=== PATIENT | female | born 1930 | race Two or more races ===

== ENCOUNTER 2017-07-08 20:46 | Inpatient (IN) | payer MEDICARE, MEDICAID ==
--- NOTE | 2017-07-08 21:01 | ED Physician Chart ---
ED Chief Complaint/HPI - Patient Information Date Seen:: 07/08/17 Time Seen:: 20:50 Chief Complaint:: increased agitation and confusion History of Present Illness:: At her extended care facility patient has been exhibiting increased confusion and agitation Historian:: EMS Review:: Nurse's Note Reviewed, Transfer documents Reviewed ED Review of Systems - Review of Systems General/Constitutional: No fever, No chills Skin: No skin lesions Head: No headache Eyes: No loss of vision ENT: No earache Neck: No neck pain Cardio Vascular: No chest pain Pulmonary: No SOB GI: No nausea, No vomiting, No diarrhea G/U: No dysuria Musculoskeletal: No bone or joint pain Endocrine: No polyuria Psychiatric: Prior psych history Hematopoietic: No bruising Allergic/Immuno: No urticaria ED Past Medical History - Past Medical History Past Medical History: Other (status post urinary tract infection; dysphagia; dementia; hypertension; atherosclerotic heart disease; arthritis; Parkinson's disease; major depression; transient ischemic attack; hemiplegia and hemiparesis ) Family History: Other (not available) Social History: Lives Alone, Care Facility Surgical History: other (not available) Psychiatricy History: Depression Family Medical History - Family Member Mother History Unknown: Yes ED Physical Exam - Physical Examination General/Constitutional: Well-developed, well-nourished, Alert Head: Atraumatic Eyes: Lids, conjuctiva normal, PERRL Skin: Nl inspection ENMT: External ears, nose nl Neck: No nuchal rigidity Respiratory: Nl effort/Exclusion, Clear to Auscultation Cardio Vascular: RRR, No murmur, gallop, rubs GI: No tenderness/rebounding/guarding Extremities: Normal digits & nails Neuro/Psych: No focal deficits ED Labs/Radiology/EKG Results - Lab Results Results: Laboratory Results - last 24 hr 07/08/17 07/08/17 07/08/17 21:23 21:23 21:23 WBC 7.4 RBC 4.03 Hgb 12.4 Hct 37.0 L MCV 91.8 MCH 30.7 MCHC Differential 33.5 RDW 13.3 Plt Count 318 MPV 9.1 Neutrophils % 50.5 Lymphocytes % 37.9 Monocytes % 8.6 Eosinophils % 2.4 Basophils % 0.6 Sodium 135 L Potassium 3.9 Chloride 101 Carbon Dioxide 26.1 Anion Gap 11.8 BUN 26 H Creatinine 1.7 H Est GFR ( Amer) TNP Est GFR (Non-Af Amer) TNP BUN/Creatinine Ratio 15.3 Glucose 95 Calcium 9.7 Total Bilirubin 0.3 AST 15 ALT 10 Alkaline Phosphatase 65 Total Protein 7.7 Albumin 4.1 Globulin 3.6 Albumin/Globulin Ratio 1.1 Triglycerides 193 H Cholesterol 217 H LDL Cholesterol Direct 147 HDL Cholesterol 43 TSH 11.95 H ED Septic Shock - . Is Septic Shock (SBP<90, OR Lactate>4 mmol\L) present?: No ED Reassessment (Disposition) - Reassessment Reassessment Condition:: Unchanged - Diagnosis Diagnosis:: Dementia with agitation - Patient Disposition Admitted to:: Med/Surg Spoke to:: Harjit Gillette Admitting Medical Physician:: Harjit Gillette Condition at Disposition:: Stable, Unchanged
[2017-07-08 21:33] LABS: EOSINOPHILE ABSOLUTE 0.2 Th/cmm (0.1-0.4); HEMOGLOBIN 12.4 gm/dL (12-16); LYMPHOCYTE ABSOLUTE 2.8 Th/cmm (1.5-3.0); RED CELL DISTRIBUTION WIDTH 13.3 % (11.5-20.0)
[2017-07-08 21:41] LABS: % BASOPHILS 0.6 % (0.0-2.0); % EOSINOPHILS 2.4 % (0.0-5.0); % LYMPHOCYTES 37.9 % (20.0-50.0); % MONOCYTES 8.6 % (2.0-10.0); % NEUTROPHILS 50.5 % (40.0-80.0); MEAN CELL VOLUME 91.8 fl (81-100); MEAN CORPUSCULAR HEMOGLOBIN 30.7 pg (27.0-31.0); MEAN CORPUSCULAR HGB CONC 33.5 pg (28.0-36.0); MEAN PLATELET VOLUME 9.1 fl; MONOCYTE ABSOLUTE 0.6 Th/cmm (0.3-1.0); NEUTROPHILE ABSOLUTE 3.8 Th/cmm (1.8-8.0); PLATELET COUNT 318 Th/cmm (150-400); RED BLOOD COUNT 4.03 Mil/cmm (3.80-5.20); WHITE BLOOD COUNT 7.4 Th/cmm (4.8-10.8)
[2017-07-08 21:48] LABS: ALB/GLOB RATIO 1.1 (1.0-1.8); ALBUMIN 4.1 gm/dL (3.7-5.3); ALKALINE PHOSPHATASE 65 U/L (34-104); ANION GAP 11.8 (7.0-16.0); BILIRUBIN,TOTAL 0.3 mg/dL (0.3-1.0); BUN - UREA NITROGEN 26 mg/dL (7-25); CALCIUM SERUM 9.7 mg/dL (8.6-10.3); CARBON DIOXIDE 26.1 mEq/L (21.0-31.0); CHLORIDE 101 mEq/L (98-107); CHOLESTEROL 217 mg/dL (<200); CREATININE - SERUM 1.7 mg/dL (0.6-1.2); GLUCOSE 95 mg/dL (70-105); HDL -HIGH DENSITY LIPOPROTEIN 43 mg/dL (23-92); POTASSIUM SERUM 3.9 mEq/L (3.5-5.1); SGOT 15 U/L (13-39); SGPT/ALT 10 U/L (7-52); SODIUM SERUM 135 mEq/L (136-145); TOTAL PROTEIN,SERUM 7.7 gm/dL (6.0-8.3); TRIGLYCERIDES 193 mg/dL (<150)
[2017-07-09 03:02] VITALS: BP 123/72
[2017-07-09 06:22] LABS: % BASOPHILS 3.2 % (0.0-2.0); % EOSINOPHILS 3.2 % (0.0-5.0); % LYMPHOCYTES 31.3 % (20.0-50.0); % MONOCYTES 8.5 % (2.0-10.0); % NEUTROPHILS 53.8 % (40.0-80.0); BASOPHILE ABSOLUTE 0.3 Th/cumm (0-0.2); EOSINOPHILE ABSOLUTE 0.3 Th/cmm (0.1-0.4); HEMATOCRIT 37.4 % (41.0-60); HEMOGLOBIN 12.4 gm/dL (12-16); LYMPHOCYTE ABSOLUTE 2.7 Th/cmm (1.5-3.0); MEAN CELL VOLUME 90.8 fl (81-100); MEAN CORPUSCULAR HEMOGLOBIN 30.1 pg (27.0-31.0); MEAN CORPUSCULAR HGB CONC 33.2 pg (28.0-36.0); MEAN PLATELET VOLUME 9.5 fl; MONOCYTE ABSOLUTE 0.7 Th/cmm (0.3-1.0); NEUTROPHILE ABSOLUTE 4.6 Th/cmm (1.8-8.0); PLATELET COUNT 323 Th/cmm (150-400); RED BLOOD COUNT 4.11 Mil/cmm (3.80-5.20); RED CELL DISTRIBUTION WIDTH 13.4 % (11.5-20.0); WHITE BLOOD COUNT 8.6 Th/cmm (4.8-10.8)
[2017-07-09 06:37] LABS: ALB/GLOB RATIO 1.1 (1.0-1.8); ALBUMIN 4.1 gm/dL (3.7-5.3); ALKALINE PHOSPHATASE 64 U/L (34-104); ANION GAP 11.9 (7.0-16.0); BILIRUBIN,TOTAL 0.5 mg/dL (0.3-1.0); BUN - UREA NITROGEN 25 mg/dL (7-25); CALCIUM SERUM 9.7 mg/dL (8.6-10.3); CARBON DIOXIDE 26.9 mEq/L (21.0-31.0); CHLORIDE 102 mEq/L (98-107); CREATININE - SERUM 1.7 mg/dL (0.6-1.2); GLUCOSE 93 mg/dL (70-105); POTASSIUM SERUM 3.8 mEq/L (3.5-5.1); SGOT 16 U/L (13-39); SGPT/ALT 10 U/L (7-52); SODIUM SERUM 137 mEq/L (136-145); TOTAL PROTEIN,SERUM 7.7 gm/dL (6.0-8.3)
[2017-07-09 18:28] LABS: A1C % 5.7 % (4.0-6.0)
== END 2017-07-09 11:57 | DRG 57 ==
LOC: ER 20:46 → MSI 07-09 00:50
PROVIDERS: ADMIT Family Medicine; ATTEND Family Medicine
DX: G20 Parkinson's disease (principal); F02.81 Dementia in other diseases classified elsewhere, unspecified severity, with behavioral disturbance; R13.10 Dysphagia, unspecified; I10 Essential (primary) hypertension; F29 Unspecified psychosis not due to a substance or known physiological condition; I25.10 Atherosclerotic heart disease of native coronary artery without angina pectoris; M19.90 Unspecified osteoarthritis, unspecified site; F32.9 Major depressive disorder, single episode, unspecified; Z86.73 Personal history of transient ischemic attack (TIA), and cerebral infarction without residual deficits
CPT/HCPCS: 36415-UA; 80053-TC; 80061-TC; 83036-90; 84443-TC; 84484-TC; 85025-TC; 86592-TC; 93005

== ENCOUNTER 2017-07-09 12:00 | Inpatient (IN) | payer MEDICARE, MEDICAID ==
[2017-07-09 12:32] VITALS: BP 120/74
[2017-07-09] MEDS ORDERED: Magnesium Hydroxide (MOM) 30 mL UDC PO PRN ×2 (12:33→13:35)
[2017-07-09] MEDS ORDERED: Maalox 30 mL Cup PO PRN (12:33)
[2017-07-09] MEDS ORDERED: Albuterol Nebulizer 2.5mg/3mL HHN PRN (13:35)
[2017-07-09] MEDS ORDERED: Albuterol/Ipratropium Neb 3 ML AERS HHN PRN (13:35)
[2017-07-09] MEDS ORDERED: Fleet Enema 135 mL RC PRN (13:35)
[2017-07-09 15:39] LABS: % BASOPHILS 1.1 % (0.0-2.0); % EOSINOPHILS 2.4 % (0.0-5.0); % LYMPHOCYTES 39.1 % (20.0-50.0); % MONOCYTES 7.9 % (2.0-10.0); % NEUTROPHILS 49.5 % (40.0-80.0); BASOPHILE ABSOLUTE 0.1 Th/cumm (0-0.2); EOSINOPHILE ABSOLUTE 0.2 Th/cmm (0.1-0.4); HEMATOCRIT 39.5 % (41.0-60); HEMOGLOBIN 12.7 gm/dL (12-16); LYMPHOCYTE ABSOLUTE 2.6 Th/cmm (1.5-3.0); MEAN CELL VOLUME 92.4 fl (81-100); MEAN CORPUSCULAR HEMOGLOBIN 29.8 pg (27.0-31.0); MEAN CORPUSCULAR HGB CONC 32.2 pg (28.0-36.0); MONOCYTE ABSOLUTE 0.5 Th/cmm (0.3-1.0); NEUTROPHILE ABSOLUTE 3.2 Th/cmm (1.8-8.0); PLATELET COUNT 312 Th/cmm (150-400); RED BLOOD COUNT 4.27 Mil/cmm (3.80-5.20); RED CELL DISTRIBUTION WIDTH 13.1 % (11.5-20.0)
[2017-07-09 15:54] LABS: WHITE BLOOD COUNT 6.6 Th/cmm (4.8-10.8)
[2017-07-09 16:22] LABS: ALB/GLOB RATIO 1.3 (1.0-1.8); ALBUMIN 4.3 gm/dL (3.7-5.3); ALKALINE PHOSPHATASE 86 U/L (34-104); ANION GAP 15.9 (7.0-16.0); BILIRUBIN,TOTAL 0.6 mg/dL (0.3-1.0); BUN - UREA NITROGEN 24 mg/dL (7-25); CALCIUM SERUM 9.4 mg/dL (8.6-10.3); CARBON DIOXIDE 22.9 mEq/L (21.0-31.0); CHLORIDE 103 mEq/L (98-107); CREATININE - SERUM 1.4 mg/dL (0.6-1.2); GLUCOSE 101 mg/dL (70-105); POTASSIUM SERUM 3.8 mEq/L (3.5-5.1); SGOT 16 U/L (13-39); SGPT/ALT 9 U/L (7-52); SODIUM SERUM 138 mEq/L (136-145); TOTAL PROTEIN,SERUM 7.7 gm/dL (6.0-8.3)
--- NOTE | 2017-07-09 18:22 | History & Physical ---
ADMIT DATE: 07/09/2017 CHIEF COMPLAINT: Severe confusion, aggressiveness. HISTORY OF PRESENT ILLNESS: The patient is an 86-year-old female with long history of Parkinson disease, hypertension, degenerative joint disease, coronary artery disease, dementia, resident at [facility], transferred to the Emergency Room at [facility] for evaluation and treatment. The patient has been very confused and aggressive over the last 24 hours. No fever, no chills, no nausea, no vomiting. PAST MEDICAL HISTORY: Parkinson disease, hypertension, coronary artery disease, degenerative joint disease, dementia. PAST SURGICAL HISTORY: No recent surgery. ALLERGIES: None. MEDICATIONS: Follow admission reconciliation. SOCIAL HISTORY: No smoking, no alcohol, no drugs. FAMILY HISTORY: Noncontributory. REVIEW OF SYSTEMS: RENAL SYSTEM: No history of chronic renal disorder. CARDIOVASCULAR SYSTEM: She has history of coronary artery disease and hypertension. ENDOCRINE SYSTEM: No diabetes or thyroid problem. GASTROINTESTINAL SYSTEM: No upper or lower GI bleeding. NEUROLOGICAL: She has history of dementia. MUSCULOSKELETAL SYSTEM: She has degenerative joint disease. HEMATOLOGIC: No bleeding tendencies. RESPIRATORY: No asthma. GENITOURINARY: No hematuria. PHYSICAL EXAMINATION: GENERAL: She is awake, not coherent. VITAL SIGNS: Temperature 98, heart rate 88, blood pressure 120/74. HEENT: Normocephalic. Pupils reactive to light and accommodation. Sclerae clear. NECK: Supple. Negative for lymphadenopathy, JVD or bruit. CHEST: Bilateral normal. No rhonchi or wheezing. HEART: S1, S2 normal. No murmur or gallop. ABDOMEN: Soft, bowel sounds positive. EXTREMITIES: No edema. NEUROLOGIC: She is awake, not coherent. No focal motor deficits. She has a gait unstable. ASSESSMENT: 1. Parkinson disease. 2. Hypertension. 3. Coronary artery disease. 4. Degenerative joint disease. 5. Dementia. PLAN: The patient admitted to the hospital under Dr. Kim's service. The medical problem to be addressed during hospitalization is dementia. Medical problems to be addressed at discharge are hypertension, coronary artery disease, Parkinson disease. The patient is medically stable for activity. Thank you Dr. Kim for asking me to see your patient. JOB# [id number]
[2017-07-10] MEDS: Multivitamin Tab PO SCH (08:13)
[2017-07-10] MEDS ORDERED: Non-Formulary Item 1 EA (Valsartan [Valsartan] 160 MG) PO SCH (09:00)
[2017-07-10 11:40] LABS: CHOLESTEROL 235 mg/dL (<200); HDL -HIGH DENSITY LIPOPROTEIN 50 mg/dL (23-92); TRIGLYCERIDES 122 mg/dL (<150)
--- NOTE | 2017-07-10 18:00 | General Progress Note ---
Subjective - Review of Systems Service Date: 07/10/17 Subjective: sitting in chair comfortably confused no distress Objective - Results Result Diagrams: 07/09/17 15:31 07/09/17 15: Recent Labs: Laboratory Last Values WBC 6.6 Th/cmm (4.8-10.8) D 07/09/17 15: RBC 4.27 Mil/cmm (3.80-5.20) 07/09/17 15: Hgb 12.7 gm/dL (12-16) 07/09/17 15: Hct 39.5 % (41.0-60) L 07/09/17 15: MCV 92.4 fl (81-100) 07/09/17 15: MCH 29.8 pg (27.0-31.0) 07/09/17: MCHC Differential 32.2 pg (28.0-36.0) 07/09/17 15: RDW 13.1 % (11.5-20.0) 07/09/17 15: Plt Count 312 Th/cmm (150-400) 07/09/17 15: MPV 9.0 fl 07/09/17 15: Neutrophils % 49.5 % (40.0-80.0) 07/09/17 15: Lymphocytes % 39.1 % (20.0-50.0) 07/09/17 15: Monocytes % 7.9 % (2.0-10.0) 07/09/17 15: Eosinophils % 2.4 % (0.0-5.0) 07/09/17: Basophils % 1.1 % (0.0-2.0) 07/09/17 15: Sodium 138 mEq/L (136-145) 07/09/17 15: Potassium 3.8 mEq/L (3.5-5.1) 07/09/17 15: Chloride 103 mEq/L (98-107) 07/09/17 15: Carbon Dioxide 22.9 mEq/L (21.0-31.0) 07/09/17 15: Anion Gap 15.9 (7.0-16.0) 07/09/17 15: BUN 24 mg/dL (7-25) 07/09/17 15:31 Creatinine 1.4 mg/dL (0.6-1.2) H 07/09/17 15:31 Est GFR ( Amer) TNP 07/09/17 15:31 Est GFR (Non-Af Amer) TNP 07/09/17 15:31 BUN/Creatinine Ratio 17.1 07/09/17 15:31 Glucose 101 mg/dL (70-105) 07/09/17 15:31 Calcium 9.4 mg/dL (8.6-10.3) 07/09/17 15:31 Total Bilirubin 0.6 mg/dL (0.3-1.0) 07/09/17 15:31 AST 16 U/L (13-39) 07/09/17 15:31 ALT 9 U/L (7-52) 07/09/17 15:31 Alkaline Phosphatase 86 U/L (34-104) 07/09/17 15:31 Total Protein 7.7 gm/dL (6.0-8.3) 07/09/17 15:31 Albumin 4.3 gm/dL (3.7-5.3) 07/09/17 15:31 Globulin 3.4 gm/dL 07/09/17 15:31 Albumin/Globulin Ratio 1.3 (1.0-1.8) 07/09/17 15:31 Triglycerides 122 mg/dL (<150) 07/10/17 10:49 Cholesterol 235 mg/dL (<200) H 07/10/17 10:49 LDL Cholesterol Direct 167 mg/dL (75-193) 07/10/17 10:49 HDL Cholesterol 50 mg/dL (23-92) 07/10/17 10:49 TSH 15.39 uIU/ml (0.34-5.60) H 07/09/17 15:31 - Physical Exam Vitals and I&O: Vital Signs Temp 97.7 F 07/10/17 16:07 Pulse 93 07/10/17 16:07 Resp 20 07/10/17 16:07 BP 122/74 07/10/17 16:07 Pulse Ox 97 07/10/17 16:07 Intake & Output 07/09/17 07/10/17 07/10/17 18:59 06:59 18:59 Intake Total 800 Balance 800 Weight (lbs) 73.482 kg Intake: Oral 800 Active Medications: Current Medications Acetaminophen (Tylenol) 650 mg PO Q4HR PRN PRN Reason: Mild Pain / Temp above 100 Stop: 09/07/17 12:32 Al Hydrox/Mg Hydrox/Simethicone (Maalox) 30 ml PO Q4HR PRN PRN Reason: GI DISTRESS Stop: 09/07/17 12:32 Albuterol/Ipratropium (Duoneb Neb) 3 ml HHN Q6HR PRN PRN Reason: Wheezing Stop: 09/07/17 13:34 Amlodipine Besylate (Norvasc) 5 mg PO DAILY [facility]ERI Stop: 09/08/17 08:59 Last Admin: 07/10/17 08:13 Dose: 5 mg Bisacodyl (Dulcolax 10 Mg Supp) 10 mg RC DAILY PRN PRN Reason: Constipation Stop: 09/07/17 13:34 Carbidopa/Levodopa (Sinemet 25mg-100 Mg) 1 tab PO TID GERI Stop: 09/07/17 13:59 Last Admin: 07/10/17 13:53 Dose: 1 tab Clopidogrel Bisulfate (Plavix) 75 mg PO DAILY [facility] Stop: 09/08/17 08:59 Last Admin: 07/10/17 08:13 Dose: 75 mg Docusate Sodium (Colace) 100 mg PO BID [facility] Stop: 09/07/17 16:59 Last Admin: 07/10/17 17:35 Dose: 100 mg Donepezil HCl (Aricept) 10 mg PO HS [facility] Stop: 09/07/17 20:59 Last Admin: 07/09/17 21:20 Dose: 10 mg Lorazepam (Ativan) 0.5 mg PO Q4HR PRN; Protocol PRN Reason: Agitation Stop: 08/08/17 12:32 Last Admin: 07/09/17 15:09 Dose: 0.5 mg Magnesium Hydroxide (Milk Of Magnesia) 30 ml PO DAILY PRN PRN Reason: Constipation Stop: 09/07/17 13:34 Memantine (Namenda) 10 mg PO BID [facility] Stop: 09/07/17 16:59 Last Admin: 07/10/17 17:35 Dose: 10 mg Multivitamins/Vitamin C (Theragran) 1 tab PO DAILY [facility]I Stop: 09/08/17 08:59 Last Admin: 07/10/17 08:13 Dose: 1 tab Quetiapine Fumarate (Seroquel) 12.5 mg PO HS GERI PRN Reason: Protocol Stop: 09/08/17 20:59 Sodium Phosphate (Fleet Enema) 135 ml RC Q48H PRN PRN Reason: Constipation Stop: 09/07/17 13:34 Tramadol HCl (Ultram) 50 mg PO Q6H PRN PRN Reason: Pain (Moderate) Stop: 09/07/17 13:34 Valsartan (Diovan) 160 mg PO DAILY GERI Stop: 09/08/17 08:59 Last Admin: 07/10/17 08:14 Dose: 160 mg Zolpidem Tartrate (Ambien) 5 mg PO HS PRN PRN Reason: Insomnia Stop: 09/07/17 12:32 Last Admin: 07/09/17 21:20 Dose: 5 mg General: No acute distress HEENT: Atraumatic, PERRLA Neck: JVD Cardiovascular: Regular rate, Normal S1, Normal S2 Lungs: Clear to auscultation Abdomen: Bowel sounds, Soft Assessment/Plan - Assessment Assessment: parkinson's disease HTN CAD dementia - Plan Plan: cont current treatment
[2017-07-11] MEDS: Multivitamin Tab PO SCH ×2 (10:11→10:22)
--- NOTE | 2017-07-11 13:51 | General Progress Note ---
Subjective - Review of Systems Service Date: 07/11/17 Subjective: resting comfortably no distress Objective - Results Result Diagrams: 07/09/17 15:31 07/09/17 15:31 Recent Labs: Laboratory Last Values WBC 6.6 Th/cmm (4.8-10.8) D 07/09/17 15:31 RBC 4.27 Mil/cmm (3.80-5.20) 07/09/17 15:31 Hgb 12.7 gm/dL (12-16) 07/09/17 15:31 Hct 39.5 % (41.0-60) L 07/09/17 15: MCV 92.4 fl (81-100) 07/09/17 15:31 MCH 29.8 pg (27.0-31.0) 07/09/17 15: MCHC Differential 32.2 pg (28.0-36.0) 07/09/17 15: RDW 13.1 % (11.5-20.0) 07/09/17 15: Plt Count 312 Th/cmm (150-400) 07/09/17 15: MPV 9.0 fl 07/09/17 15: Neutrophils % 49.5 % (40.0-80.0) 07/09/17 15: Lymphocytes % 39.1 % (20.0-50.0) 07/09/17 15: Monocytes % 7.9 % (2.0-10.0) 07/09/17 15: Eosinophils % 2.4 % (0.0-5.0) 07/09/17 15: Basophils % 1.1 % (0.0-2.0) 07/09/17 15:31 Sodium 138 mEq/L (136-145) 07/09/17 15:31 Potassium 3.8 mEq/L (3.5-5.1) 07/09/17 15: Chloride 103 mEq/L (98-107) 07/09/17 15: Carbon Dioxide 22.9 mEq/L (21.0-31.0) 07/09/17 15: Anion Gap 15.9 (7.0-16.0) 07/09/17 15:31 BUN 24 mg/dL (7-25) 07/09/17 15:31 Creatinine 1.4 mg/dL (0.6-1.2) H 07/09/17 15:31 Est GFR ( Amer) TNP 07/09/17 15:31 Est GFR (Non-Af Amer) TNP 07/09/17 15:31 BUN/Creatinine Ratio 17.1 07/09/17 15:31 Glucose 101 mg/dL (70-105) 07/09/17 15:31 Calcium 9.4 mg/dL (8.6-10.3) 07/09/17 15:31 Total Bilirubin 0.6 mg/dL (0.3-1.0) 07/09/17 15:31 AST 16 U/L (13-39) 07/09/17 15:31 ALT 9 U/L (7-52) 07/09/17 15:31 Alkaline Phosphatase 86 U/L (34-104) 07/09/17 15:31 Total Protein 7.7 gm/dL (6.0-8.3) 07/09/17 15:31 Albumin 4.3 gm/dL (3.7-5.3) 07/09/17 15:31 Globulin 3.4 gm/dL 07/09/17 15:31 Albumin/Globulin Ratio 1.3 (1.0-1.8) 07/09/17 15:31 Triglycerides 122 mg/dL (<150) 07/10/17 10:49 Cholesterol 235 mg/dL (<200) H 07/10/17 10:49 LDL Cholesterol Direct 167 mg/dL (75-193) 07/10/17 10:49 HDL Cholesterol 50 mg/dL (23-92) 07/10/17 10:49 TSH 15.39 uIU/ml (0.34-5.60) H 07/09/17 15:31 - Physical Exam Vitals and I&O: Vital Signs Temp 97.6 F 07/10/17 21:16 Pulse 74 07/11/17 10:23 Resp 20 07/11/17 07:23 BP 104/64 07/11/17 10:23 Pulse Ox 94 07/11/17 07:23 Intake & Output 07/10/17 07/11/17 07/11/17 18:59 06:59 18:59 Intake Total 850 240 Balance 850 240 Intake: Oral 850 240 Other: # Voids 4 1 # Bowel Movements 1 Active Medications: Current Medications Acetaminophen (Tylenol) 650 mg PO Q4HR PRN PRN Reason: Mild Pain / Temp above 100 Stop: 09/07/17 12:32 Al Hydrox/Mg Hydrox/Simethicone (Maalox) 30 ml PO Q4HR PRN PRN Reason: GI DISTRESS Stop: 09/07/17 12:32 Albuterol/Ipratropium (Duoneb Neb) 3 ml HHN Q6HR PRN PRN Reason: Wheezing Stop: 09/07/17 13:34 Amlodipine Besylate (Norvasc) 5 mg PO DAILY [facility] Stop: 09/08/17 08:59 Last Admin: 07/11/17 10:21 Dose: Not Given Bisacodyl (Dulcolax 10 Mg Supp) 10 mg RC DAILY PRN PRN Reason: Constipation Stop: 09/07/17 13:34 Carbidopa/Levodopa (Sinemet 25mg-100 Mg) 1 tab PO TID [facility] Stop: 09/07/17 13:59 Last Admin: 07/11/17 10:20 Dose: Not Given Clopidogrel Bisulfate (Plavix) 75 mg PO DAILY [facility] Stop: 09/08/17 08:59 Last Admin: 07/11/17 10:22 Dose: Not Given Docusate Sodium (Colace) 100 mg PO BID [facility] Stop: 09/07/17 16:59 Last Admin: 07/11/17 10:22 Dose: Not Given Donepezil HCl (Aricept) 10 mg PO HS [facility] Stop: 09/07/17 20:59 Last Admin: 07/10/17 22:00 Dose: 10 mg Lorazepam (Ativan) 0.5 mg PO Q4HR PRN; Protocol PRN Reason: Agitation Stop: 08/08/17 12:32 Last Admin: 07/09/17 15:09 Dose: 0.5 mg Magnesium Hydroxide (Milk Of Magnesia) 30 ml PO DAILY PRN PRN Reason: Constipation Stop: 09/07/17 13:34 Memantine (Namenda) 10 mg PO BID [facility] Stop: 09/07/17 16:59 Last Admin: 07/11/17 10:22 Dose: Not Given Multivitamins/Vitamin C (Theragran) 1 tab PO DAILY [facility] Stop: 09/08/17 08:59 Last Admin: 07/11/17 10:22 Dose: Not Given Quetiapine Fumarate (Seroquel) 12.5 mg PO HS [facility]I PRN Reason: Protocol Stop: 09/08/17 20:59 Last Admin: 07/10/17 22:00 Dose: 12.5 mg Sodium Phosphate (Fleet Enema) 135 ml RC Q48H PRN PRN Reason: Constipation Stop: 09/07/17 13:34 Tramadol HCl (Ultram) 50 mg PO Q6H PRN PRN Reason: Pain (Moderate) Stop: 09/07/17 13:34 Valsartan (Diovan) 160 mg PO DAILY [facility] Stop: 09/08/17 08:59 Last Admin: 07/11/17 10:23 Dose: Not Given Zolpidem Tartrate (Ambien) 5 mg PO HS PRN PRN Reason: Insomnia Stop: 09/07/17 12:32 Last Admin: 07/09/17 21:20 Dose: 5 mg General: No acute distress HEENT: Atraumatic, PERRLA Neck: JVD Cardiovascular: Regular rate, Normal S1, Normal S2 Lungs: Clear to auscultation Abdomen: Bowel sounds, Soft Assessment/Plan - Assessment Assessment: parkinson's disease HTN CAD dementia - Plan Plan: cont current treatment
--- NOTE | 2017-07-12 06:35 | Psychosocial Evaluation ---
DATE OF SERVICE: 07/12/2017 PSYCHIATRIC INITIAL EVALUATION AND MENTAL STATUS EXAM PATIENT AGE: 86. GENDER: Female. PHYSICIANS: Juanjose Kim MD and Doug Hester MD, MPH CHIEF COMPLAINT: Agitation and irritability. HISTORY OF PRESENT ILLNESS: The patient is an 86-year-old female who has been living in [facility]. The patient has been living in [facility] in [place]. The patient was in [facility], but the patient was extremely agitated and tried to get off the bed. She also has been agitated and unable to follow any of staff directions. She also has been confused, rambling words in Danish language that staff has difficulty understanding and the patient is confused. The patient also has history of dementia and forgetfulness. The patient is still agitated and confused and is in irritable mood. PAST PSYCHIATRIC HISTORY: The patient has history of dementia and psychosis. PAST MEDICAL HISTORY: The patient has hypertension, coronary artery disease, Parkinson's disease, and degenerative joint disease. SOCIAL HISTORY: The patient lives in [facility]. No known alcohol or street drug use. The patient is Danish speaking. ALLERGIES: No known allergies. MENTAL STATUS EXAMINATION: The patient appears her stated age. Anxious. Irritable mood. Disorganized thoughts. Tried to speak in Danish, but in a confused way. The patient also was yelling and screaming at times during interview. The patient did not answer questions regarding hallucinations or delusions, but she seems to be paranoid. The patient did not answer questions regarding suicide or homicide. The patient is alert and disoriented to time, place, person and situation. Impaired immediate and recent memory, but intact remote memory and she told me her date in Danish. I speak the language. Poor insight and judgment. ASSESSMENT: PRIMARY DIAGNOSIS: Unspecified psychosis. SECONDARY DIAGNOSIS: Dementia, severe, with psychotic features. TREATMENT PLAN: We will monitor the patient's behavior closely. We will start individual as well as milieu psychotherapy. We will monitor psychotropic medications. ESTIMATED LENGTH OF STAY: 5-7 days. THE PATIENT'S STRENGTHS AND WEAKNESSES: The patient's strength is not clear at this time. Weaknesses are her ineffective coping and poor impulse control. AFTER DISCHARGE PLAN: The patient will return to [facility] with outpatient treatment and follow up there with Dr. Kim. CRITERIA FOR DISCHARGE: The patient will not be psychotic and will stabilize psychotropic medications and will establish outpatient treatment plans. JOB# [id number]
[2017-07-12] MEDS: Multivitamin Tab PO SCH (09:46)
--- NOTE | 2017-07-12 23:54 | Internal Medicine Prog Note ---
Internal Medicine Subjective - Subjective Service Date: 07/12/17 Patient seen and examined:: with staff Patient is:: awake, non-verbal, in bed, confused Per staff patient has:: no adverse event Internal Medicine Objective - Results Result Diagrams: 07/09/17 15:31 07/09/17 15: Recent Labs: Laboratory Last Values WBC 6.6 Th/cmm (4.8-10.8) D 07/09/17 15: RBC 4.27 Mil/cmm (3.80-5.20) 07/09/17 15: Hgb 12.7 gm/dL (12-16) 07/09/17 15: Hct 39.5 % (41.0-60) L 07/09/17 15: MCV 92.4 fl (81-100) 07/09/17 15: MCH 29.8 pg (27.0-31.0) 07/09/17 15: MCHC Differential 32.2 pg (28.0-36.0) 07/09/17 15: RDW 13.1 % (11.5-20.0) 07/09/17 15: Plt Count 312 Th/cmm (150-400) 07/09/17 15: MPV 9.0 fl 07/09/17 15: Neutrophils % 49.5 % (40.0-80.0) 07/09/17 15: Lymphocytes % 39.1 % (20.0-50.0) 07/09/17 15: Monocytes % 7.9 % (2.0-10.0) 07/09/17 15: Eosinophils % 2.4 % (0.0-5.0) 07/09/17 15: Basophils % 1.1 % (0.0-2.0) 07/09/17 15: Sodium 138 mEq/L (136-145) 07/09/17 15: Potassium 3.8 mEq/L (3.5-5.1) 07/09/17 15: Chloride 103 mEq/L (98-107) 07/09/17 15: Carbon Dioxide 22.9 mEq/L (21.0-31.0) 07/09/17 15: Anion Gap 15.9 (7.0-16.0) 07/09/17 15:31 BUN 24 mg/dL (7-25) 07/09/17 15:31 Creatinine 1.4 mg/dL (0.6-1.2) H 07/09/17 15:31 Est GFR ( Amer) TNP 07/09/17 15:31 Est GFR (Non-Af Amer) TNP 07/09/17 15:31 BUN/Creatinine Ratio 17.1 07/09/17 15:31 Glucose 101 mg/dL (70-105) 07/09/17 15:31 Calcium 9.4 mg/dL (8.6-10.3) 07/09/17 15:31 Total Bilirubin 0.6 mg/dL (0.3-1.0) 07/09/17 15:31 AST 16 U/L (13-39) 07/09/17 15:31 ALT 9 U/L (7-52) 07/09/17 15:31 Alkaline Phosphatase 86 U/L (34-104) 07/09/17 15:31 Total Protein 7.7 gm/dL (6.0-8.3) 07/09/17 15:31 Albumin 4.3 gm/dL (3.7-5.3) 07/09/17 15:31 Globulin 3.4 gm/dL 07/09/17 15:31 Albumin/Globulin Ratio 1.3 (1.0-1.8) 07/09/17 15:31 Triglycerides 122 mg/dL (<150) 07/10/17 10:49 Cholesterol 235 mg/dL (<200) H 07/10/17 10:49 LDL Cholesterol Direct 167 mg/dL (75-193) 07/10/17 10:49 HDL Cholesterol 50 mg/dL (23-92) 07/10/17 10:49 TSH 15.39 uIU/ml (0.34-5.60) H 07/09/17 15:31 - Physical Exam Vitals and I&O: Vital Signs Temp 97.6 F 07/12/17 19:58 Pulse 89 07/12/17 19:58 Resp 20 07/12/17 19:58 BP 122/66 07/12/17 19:58 Pulse Ox 96 07/12/17 19:58 Intake & Output 02/05/18 02/05/18 02/06/18 06:59 18:59 06:59 Intake Total 120 120 120 Balance 120 120 120 Intake: Oral 120 120 120 Other: # Voids 1 2 1 # Bowel Movements 0 Active Medications: Current Medications Acetaminophen (Tylenol) 650 mg PO Q4HR PRN PRN Reason: Mild Pain / Temp above 100 Stop: 09/07/17 12:32 Al Hydrox/Mg Hydrox/Simethicone (Maalox) 30 ml PO Q4HR PRN PRN Reason: GI DISTRESS Stop: 09/07/17 12:32 Albuterol/Ipratropium (Duoneb Neb) 3 ml HHN Q6HR PRN PRN Reason: Wheezing Stop: 09/07/17 13:34 Amlodipine Besylate (Norvasc) 5 mg PO DAILY [facility] Stop: 09/08/17 08:59 Last Admin: 07/12/17 09:44 Dose: Not Given Bisacodyl (Dulcolax 10 Mg Supp) 10 mg RC DAILY PRN PRN Reason: Constipation Stop: 09/07/17 13:34 Carbidopa/Levodopa (Sinemet 25mg-100 Mg) 1 tab PO TID [facility] Stop: 09/07/17 13:59 Last Admin: 07/12/17 20:56 Dose: 1 tab Clopidogrel Bisulfate (Plavix) 75 mg PO DAILY [facility] Stop: 09/08/17 08:59 Last Admin: 07/12/17 09:45 Dose: 75 mg Docusate Sodium (Colace) 100 mg PO BID [facility] Stop: 09/07/17 16:59 Last Admin: 07/12/17 17:50 Dose: 100 mg Donepezil HCl (Aricept) 10 mg PO HS [facility] Stop: 09/07/17 20:59 Last Admin: 07/12/17 20:56 Dose: 10 mg Lorazepam (Ativan) 0.5 mg PO Q4HR PRN; Protocol PRN Reason: Agitation Stop: 08/08/17 12:32 Last Admin: 07/12/17 20:56 Dose: 0.5 mg Magnesium Hydroxide (Milk Of Magnesia) 30 ml PO DAILY PRN PRN Reason: Constipation Stop: 09/07/17 13:34 Memantine (Namenda) 10 mg PO BID [facility]I Stop: 09/07/17 16:59 Last Admin: 07/12/17 17:50 Dose: 10 mg Multivitamins/Vitamin C (Theragran) 1 tab PO DAILY [facility]I Stop: 09/08/17 08:59 Last Admin: 07/12/17 09:46 Dose: 1 tab Quetiapine Fumarate (Seroquel) 12.5 mg PO HS GERI PRN Reason: Protocol Stop: 09/08/17 20:59 Last Admin: 07/12/17 20:56 Dose: 12.5 mg Sodium Phosphate (Fleet Enema) 135 ml RC Q48H PRN PRN Reason: Constipation Stop: 09/07/17 13:34 Tramadol HCl (Ultram) 50 mg PO Q6H PRN PRN Reason: Pain (Moderate) Stop: 09/07/17 13:34 Valsartan (Diovan) 160 mg PO DAILY [facility] Stop: 09/08/17 08:59 Last Admin: 07/12/17 09:46 Dose: Not Given Zolpidem Tartrate (Ambien) 5 mg PO HS PRN PRN Reason: Insomnia Stop: 09/07/17 12:32 Last Admin: 07/11/17 21:46 Dose: 5 mg General: demented HEENT: NC/AT, PERRLA, EOMI, anicteric sclerae, throat clear Neck: Supple, No JVD, No thyromegaly, +2 carotid pulse wo bruit, No LAD Lungs: CTAB Cardiovascular: RRR, Normal S1, Normal S2, without murmur Abdomen: soft, non-tender, non-distended Extremities: clear Neurological: no change Internal Medicine Assmt/Plan - Assessment Assessment: 1.HTN. 2.DJD. 3.DEMENTIA - Plan Plan: CONTINUE ON CURRENT MEDICATION AND DIET.
--- NOTE | 2017-07-13 03:58 | Progress Notes ---
DATE: 07/12/2017 SUBJECTIVE: The patient is currently in the hospital on 07/12/2017. Noted to be agitated, tried to go out of the bed in the med-surg unit, not following rules, rambling speech, confused, disoriented, history of dementia. Staff noting she remains withdrawn, still with medication refusals, some agitation, and restlessness at night time also with poor sleep, requiring Ativan last night. The patient is coming from [facility]. Medications were reviewed including dosages and frequency, currently on low dose Seroquel and also Aricept. ASSESSMENT: The patient remains symptomatic, not safe for discharge. Still symptomatic, agitated, restless, more so at night time. PLAN: We will continue to monitor given ongoing symptoms. The patient is not safe for discharge, not safe for a lower level of care. JOB# [id number]
[2017-07-13] MEDS: Multivitamin Tab PO SCH (08:33)
--- NOTE | 2017-07-13 18:33 | Progress Notes ---
DATE: 07/13/2017 SUBJECTIVE: The patient is currently in the hospital, noted to be agitated, trying to get out of bed in the med-surg unit. At this time, quiet and in bed, not talking to me, refusing interview, refusing to speak with me, but awake and alert. The patient coming from [facility]. Staff noting patient remains at times unruly but generally calmer, more cooperative, still with some behaviors at nighttime. MEDICATIONS: Reviewed. ASSESSMENT: The patient remains symptomatic, still difficult to control behaviors, requiring redirection. PLAN: We will continue to monitor. The patient does seem to making an improvement. JOB# [id number]
--- NOTE | 2017-07-13 20:01 | Internal Medicine Prog Note ---
Internal Medicine Subjective - Subjective Service Date: 07/13/17 Patient seen and examined:: with staff (SHE IS FEELING BETTER.) Patient is:: awake, non-verbal, in bed, confused Per staff patient has:: no adverse event Internal Medicine Objective - Results Result Diagrams: 07/09/17 15:31 07/09/17 15: Recent Labs: Laboratory Last Values WBC 6.6 Th/cmm (4.8-10.8) D 07/09/17 15: RBC 4.27 Mil/cmm (3.80-5.20) 07/09/17 15: Hgb 12.7 gm/dL (12-16) 07/09/17 15: Hct 39.5 % (41.0-60) L 07/09/17 15: MCV 92.4 fl (81-100) 07/09/17 15: MCH 29.8 pg (27.0-31.0) 07/09/17 15: MCHC Differential 32.2 pg (28.0-36.0) 07/09/17 15: RDW 13.1 % (11.5-20.0) 07/09/17 15: Plt Count 312 Th/cmm (150-400) 07/09/17 15: MPV 9.0 fl 07/09/17 15: Neutrophils % 49.5 % (40.0-80.0) 07/09/17 15: Lymphocytes % 39.1 % (20.0-50.0) 07/09/17 15: Monocytes % 7.9 % (2.0-10.0) 07/09/17 15: Eosinophils % 2.4 % (0.0-5.0) 07/09/17 15: Basophils % 1.1 % (0.0-2.0) 07/09/17 15: Sodium 138 mEq/L (136-145) 07/09/17 15: Potassium 3.8 mEq/L (3.5-5.1) 07/09/17 15: Chloride 103 mEq/L (98-107) 07/09/17 15: Carbon Dioxide 22.9 mEq/L (21.0-31.0) 07/09/17 15: Anion Gap 15.9 (7.0-16.0) 07/09/17 15:31 BUN 24 mg/dL (7-25) 07/09/17 15:31 Creatinine 1.4 mg/dL (0.6-1.2) H 07/09/17 15:31 Est GFR ( Amer) TNP 07/09/17 15:31 Est GFR (Non-Af Amer) TNP 07/09/17 15:31 BUN/Creatinine Ratio 17.1 07/09/17 15:31 Glucose 101 mg/dL (70-105) 07/09/17 15:31 Calcium 9.4 mg/dL (8.6-10.3) 07/09/17 15:31 Total Bilirubin 0.6 mg/dL (0.3-1.0) 07/09/17 15:31 AST 16 U/L (13-39) 07/09/17 15:31 ALT 9 U/L (7-52) 07/09/17 15:31 Alkaline Phosphatase 86 U/L (34-104) 07/09/17 15:31 Total Protein 7.7 gm/dL (6.0-8.3) 07/09/17 15:31 Albumin 4.3 gm/dL (3.7-5.3) 07/09/17 15:31 Globulin 3.4 gm/dL 07/09/17 15:31 Albumin/Globulin Ratio 1.3 (1.0-1.8) 07/09/17 15:31 Triglycerides 122 mg/dL (<150) 07/10/17 10:49 Cholesterol 235 mg/dL (<200) H 07/10/17 10:49 LDL Cholesterol Direct 167 mg/dL (75-193) 07/10/17 10:49 HDL Cholesterol 50 mg/dL (23-92) 07/10/17 10:49 TSH 15.39 uIU/ml (0.34-5.60) H 07/09/17 15:31 - Physical Exam Vitals and I&O: Vital Signs Temp 96.9 F 07/13/17 16:29 Pulse 86 07/13/17 16:29 Resp 20 07/13/17 16:29 BP 127/73 07/13/17 16:29 Pulse Ox 96 07/13/17 16:29 Intake & Output 07/13/17 07/13/17 07/14/17 06:59 18:59 06:59 Intake Total 120 300 Balance 120 300 Intake: Oral 120 300 Other: # Voids 3 3 # Bowel Movements 1 Active Medications: Current Medications Acetaminophen (Tylenol) 650 mg PO Q4HR PRN PRN Reason: Mild Pain / Temp above 100 Stop: 09/07/17 12:32 Al Hydrox/Mg Hydrox/Simethicone (Maalox) 30 ml PO Q4HR PRN PRN Reason: GI DISTRESS Stop: 09/07/17 12:32 Albuterol/Ipratropium (Duoneb Neb) 3 ml HHN Q6HR PRN PRN Reason: Wheezing Stop: 09/07/17 13:34 Amlodipine Besylate (Norvasc) 5 mg PO DAILY GERI Stop: 09/08/17 08:59 Last Admin: 07/13/17 08:32 Dose: 5 mg Bisacodyl (Dulcolax 10 Mg Supp) 10 mg RC DAILY PRN PRN Reason: Constipation Stop: 09/07/17 13:34 Carbidopa/Levodopa (Sinemet 25mg-100 Mg) 1 tab PO TID GERI Stop: 09/07/17 13:59 Last Admin: 07/13/17 14:07 Dose: 1 tab Clopidogrel Bisulfate (Plavix) 75 mg PO DAILY GERI Stop: 09/08/17 08:59 Last Admin: 07/13/17 08:31 Dose: 75 mg Docusate Sodium (Colace) 100 mg PO BID GERI Stop: 09/07/17 16:59 Last Admin: 07/13/17 17:08 Dose: 100 mg Donepezil HCl (Aricept) 10 mg PO HS GERI Stop: 09/07/17 20:59 Last Admin: 07/12/17 20:56 Dose: 10 mg Lorazepam (Ativan) 0.5 mg PO Q4HR PRN; Protocol PRN Reason: Agitation Stop: 08/08/17 12:32 Last Admin: 07/12/17 20:56 Dose: 0.5 mg Magnesium Hydroxide (Milk Of Magnesia) 30 ml PO DAILY PRN PRN Reason: Constipation Stop: 09/07/17 13:34 Memantine (Namenda) 10 mg PO BID GERI Stop: 09/07/17 16:59 Last Admin: 07/13/17 17:08 Dose: 10 mg Multivitamins/Vitamin C (Theragran) 1 tab PO DAILY GERI Stop: 09/08/17 08:59 Last Admin: 07/13/17 08:33 Dose: 1 tab Quetiapine Fumarate (Seroquel) 12.5 mg PO HS GERI PRN Reason: Protocol Stop: 09/08/17 20:59 Last Admin: 07/12/17 20:56 Dose: 12.5 mg Sodium Phosphate (Fleet Enema) 135 ml RC Q48H PRN PRN Reason: Constipation Stop: 09/07/17 13:34 Tramadol HCl (Ultram) 50 mg PO Q6H PRN PRN Reason: Pain (Moderate) Stop: 09/07/17 13:34 Valsartan (Diovan) 160 mg PO DAILY GERI Stop: 09/08/17 08:59 Last Admin: 07/13/17 08:31 Dose: 160 mg Zolpidem Tartrate (Ambien) 5 mg PO HS PRN PRN Reason: Insomnia Stop: 09/07/17 12:32 Last Admin: 07/11/17 21:46 Dose: 5 mg General: demented HEENT: NC/AT, PERRLA, EOMI, anicteric sclerae, throat clear Neck: Supple, No JVD, No thyromegaly, +2 carotid pulse wo bruit, No LAD Lungs: CTAB Cardiovascular: RRR, Normal S1, Normal S2, without murmur Abdomen: soft, non-tender, non-distended Extremities: clear Neurological: no change Internal Medicine Assmt/Plan - Assessment Assessment: 1.HTN. 2.DJD. 3.DEMENTIA - Plan Plan: CONTINUE ON CURRENT MEDICATION AND DIET.
[2017-07-14] MEDS: Multivitamin Tab PO SCH (09:38)
--- NOTE | 2017-07-14 12:29 | Progress Notes ---
DATE: 07/14/2017 SUBJECTIVE: Chart reviewed and the patient interviewed. Also, discussed the patient's condition with the staff and reviewed records and labs. The patient continued to be confused. The patient also still seems to be disoriented. She also easily agitated, but cooperative. The patient is trying to interact more, but she is having difficulty with communication because of language barrier. Otherwise, the patient is compliant with taking her medications with no side effects of medications. ASSESSMENT: The patient is still psychotic and confused. TREATMENT PLAN: Continue to monitor her behavior and her medications closely. Also, continue adjusting psychotropic medications and will continue to follow up closely. [facility]# [id number]
--- NOTE | 2017-07-14 20:52 | Internal Medicine Prog Note ---
Internal Medicine Subjective - Subjective Service Date: 07/14/17 Patient seen and examined:: with staff Patient is:: awake, non-verbal, in bed, confused Per staff patient has:: no adverse event Internal Medicine Objective - Results Result Diagrams: 07/09/17 15:31 07/09/17 15: Recent Labs: Laboratory Last Values WBC 6.6 Th/cmm (4.8-10.8) D 07/09/17 15: RBC 4.27 Mil/cmm (3.80-5.20) 07/09/17 15: Hgb 12.7 gm/dL (12-16) 07/09/17 15: Hct 39.5 % (41.0-60) L 07/09/17 15: MCV 92.4 fl (81-100) 07/09/17 15: MCH 29.8 pg (27.0-31.0) 07/09/17 15: MCHC Differential 32.2 pg (28.0-36.0) 07/09/17 15: RDW 13.1 % (11.5-20.0) 07/09/17 15: Plt Count 312 Th/cmm (150-400) 07/09/17 15: MPV 9.0 fl 07/09/17 15: Neutrophils % 49.5 % (40.0-80.0) 07/09/17 15: Lymphocytes % 39.1 % (20.0-50.0) 07/09/17 15: Monocytes % 7.9 % (2.0-10.0) 07/09/17 15: Eosinophils % 2.4 % (0.0-5.0) 07/09/17 15: Basophils % 1.1 % (0.0-2.0) 07/09/17 15: Sodium 138 mEq/L (136-145) 07/09/17 15: Potassium 3.8 mEq/L (3.5-5.1) 07/09/17 15: Chloride 103 mEq/L (98-107) 07/09/17 15: Carbon Dioxide 22.9 mEq/L (21.0-31.0) 07/09/17 15: Anion Gap 15.9 (7.0-16.0) 07/09/17 15:31 BUN 24 mg/dL (7-25) 07/09/17 15:31 Creatinine 1.4 mg/dL (0.6-1.2) H 07/09/17 15:31 Est GFR ( Amer) TNP 07/09/17 15:31 Est GFR (Non-Af Amer) TNP 07/09/17 15:31 BUN/Creatinine Ratio 17.1 07/09/17 15:31 Glucose 101 mg/dL (70-105) 07/09/17 15:31 Calcium 9.4 mg/dL (8.6-10.3) 07/09/17 15:31 Total Bilirubin 0.6 mg/dL (0.3-1.0) 07/09/17 15:31 AST 16 U/L (13-39) 07/09/17 15:31 ALT 9 U/L (7-52) 07/09/17 15:31 Alkaline Phosphatase 86 U/L (34-104) 07/09/17 15:31 Total Protein 7.7 gm/dL (6.0-8.3) 07/09/17 15:31 Albumin 4.3 gm/dL (3.7-5.3) 07/09/17 15:31 Globulin 3.4 gm/dL 07/09/17 15:31 Albumin/Globulin Ratio 1.3 (1.0-1.8) 07/09/17 15:31 Triglycerides 122 mg/dL (<150) 07/10/17 10:49 Cholesterol 235 mg/dL (<200) H 07/10/17 10:49 LDL Cholesterol Direct 167 mg/dL (75-193) 07/10/17 10:49 HDL Cholesterol 50 mg/dL (23-92) 07/10/17 10:49 TSH 15.39 uIU/ml (0.34-5.60) H 07/09/17 15:31 - Physical Exam Vitals and I&O: Vital Signs Temp 98.0 F 07/14/17 14:52 Pulse 90 07/14/17 14:52 Resp 20 07/14/17 14:52 BP 120/69 07/14/17 14:52 Pulse Ox 98 07/14/17 14:52 Intake & Output 02/07/18 02/07/18 02/08/18 06:59 18:59 06:59 Intake Total 180 300 Balance 180 300 Intake: Oral 180 300 Other: # Voids 2 3 # Bowel Movements 0 0 Active Medications: Current Medications Acetaminophen (Tylenol) 650 mg PO Q4HR PRN PRN Reason: Mild Pain / Temp above 100 Stop: 09/07/17 12:32 Al Hydrox/Mg Hydrox/Simethicone (Maalox) 30 ml PO Q4HR PRN PRN Reason: GI DISTRESS Stop: 09/07/17 12:32 Albuterol/Ipratropium (Duoneb Neb) 3 ml HHN Q6HR PRN PRN Reason: Wheezing Stop: 09/07/17 13:34 Amlodipine Besylate (Norvasc) 5 mg PO DAILY GERI Stop: 09/08/17 08:59 Last Admin: 07/14/17 09:37 Dose: 5 mg Bisacodyl (Dulcolax 10 Mg Supp) 10 mg RC DAILY PRN PRN Reason: Constipation Stop: 09/07/17 13:34 Carbidopa/Levodopa (Sinemet 25mg-100 Mg) 1 tab PO TID GERI Stop: 09/07/17 13:59 Last Admin: 07/14/17 14:17 Dose: 1 tab Clopidogrel Bisulfate (Plavix) 75 mg PO DAILY GERI Stop: 09/08/17 08:59 Last Admin: 07/14/17 09:37 Dose: 75 mg Docusate Sodium (Colace) 100 mg PO BID GERI Stop: 09/07/17 16:59 Last Admin: 07/14/17 16:10 Dose: 100 mg Donepezil HCl (Aricept) 10 mg PO HS GERI Stop: 09/07/17 20:59 Last Admin: 07/13/17 21:18 Dose: 10 mg Lorazepam (Ativan) 0.5 mg PO Q4HR PRN; Protocol PRN Reason: Agitation Stop: 08/08/17 12:32 Last Admin: 07/13/17 21:19 Dose: 0.5 mg Magnesium Hydroxide (Milk Of Magnesia) 30 ml PO DAILY PRN PRN Reason: Constipation Stop: 09/07/17 13:34 Memantine (Namenda) 10 mg PO BID GERI Stop: 09/07/17 16:59 Last Admin: 07/14/17 16:10 Dose: 10 mg Multivitamins/Vitamin C (Theragran) 1 tab PO DAILY GERI Stop: 09/08/17 08:59 Last Admin: 07/14/17 09:38 Dose: 1 tab Quetiapine Fumarate (Seroquel) 12.5 mg PO HS GERI PRN Reason: Protocol Stop: 09/08/17 20:59 Last Admin: 07/13/17 21:19 Dose: 12.5 mg Sodium Phosphate (Fleet Enema) 135 ml RC Q48H PRN PRN Reason: Constipation Stop: 09/07/17 13:34 Tramadol HCl (Ultram) 50 mg PO Q6H PRN PRN Reason: Pain (Moderate) Stop: 09/07/17 13:34 Valsartan (Diovan) 160 mg PO DAILY GERI Stop: 09/08/17 08:59 Last Admin: 07/14/17 09:38 Dose: 160 mg Zolpidem Tartrate (Ambien) 5 mg PO HS PRN PRN Reason: Insomnia Stop: 09/07/17 12:32 Last Admin: 07/11/17 21:46 Dose: 5 mg General: demented HEENT: NC/AT, PERRLA, EOMI, anicteric sclerae, throat clear Neck: Supple, No JVD, No thyromegaly, +2 carotid pulse wo bruit, No LAD Lungs: CTAB Cardiovascular: RRR, Normal S1, Normal S2, without murmur Abdomen: soft, non-tender, non-distended Extremities: clear Neurological: no change Internal Medicine Assmt/Plan - Assessment Assessment: 1.HTN. 2.DJD. 3.DEMENTIA - Plan Plan: CONTINUE ON CURRENT MEDICATION AND DIET.
[2017-07-15] MEDS: Multivitamin Tab PO SCH (08:45)
--- NOTE | 2017-07-15 14:34 | Progress Notes ---
DATE: 07/14/2017 SUBJECTIVE: The patient remains confused, holding a baby, is still anxious, agitated, on a rhiannon chair, poor med compliance, needing a lot of prompting and redirection, still with unruly behaviors, impulsive behaviors, aggressive at times. MEDICATIONS: Reviewed. ASSESSMENT: The patient remains symptomatic, still unruly, difficult to control behaviors. PLAN: We will continue to monitor. We will continue to titrate and adjust medications. No oversedation noted. No EPS. We will monitor and follow up. JOB# [id number]
--- NOTE | 2017-07-15 17:59 | Internal Medicine Prog Note ---
Internal Medicine Subjective - Subjective Service Date: 07/15/17 Patient seen and examined:: with staff Patient is:: awake, non-verbal, in bed, confused Per staff patient has:: no adverse event Internal Medicine Objective - Results Result Diagrams: 07/09/17 15:31 07/09/17 15: Recent Labs: Laboratory Last Values WBC 6.6 Th/cmm (4.8-10.8) D 07/09/17 15: RBC 4.27 Mil/cmm (3.80-5.20) 07/09/17 15: Hgb 12.7 gm/dL (12-16) 07/09/17 15: Hct 39.5 % (41.0-60) L 07/09/17 15: MCV 92.4 fl (81-100) 07/09/17 15: MCH 29.8 pg (27.0-31.0) 07/09/17 15: MCHC Differential 32.2 pg (28.0-36.0) 07/09/17 15: RDW 13.1 % (11.5-20.0) 07/09/17 15: Plt Count 312 Th/cmm (150-400) 07/09/17 15: MPV 9.0 fl 07/09/17 15: Neutrophils % 49.5 % (40.0-80.0) 07/09/17 15: Lymphocytes % 39.1 % (20.0-50.0) 07/09/17 15: Monocytes % 7.9 % (2.0-10.0) 07/09/17 15: Eosinophils % 2.4 % (0.0-5.0) 07/09/17 15: Basophils % 1.1 % (0.0-2.0) 07/09/17 15: Sodium 138 mEq/L (136-145) 07/09/17 15: Potassium 3.8 mEq/L (3.5-5.1) 07/09/17 15: Chloride 103 mEq/L (98-107) 07/09/17 15: Carbon Dioxide 22.9 mEq/L (21.0-31.0) 07/09/17 15: Anion Gap 15.9 (7.0-16.0) 07/09/17 15:31 BUN 24 mg/dL (7-25) 07/09/17 15:31 Creatinine 1.4 mg/dL (0.6-1.2) H 07/09/17 15:31 Est GFR ( Amer) TNP 07/09/17 15:31 Est GFR (Non-Af Amer) TNP 07/09/17 15:31 BUN/Creatinine Ratio 17.1 07/09/17 15:31 Glucose 101 mg/dL (70-105) 07/09/17 15:31 Calcium 9.4 mg/dL (8.6-10.3) 07/09/17 15:31 Total Bilirubin 0.6 mg/dL (0.3-1.0) 07/09/17 15:31 AST 16 U/L (13-39) 07/09/17 15:31 ALT 9 U/L (7-52) 07/09/17 15:31 Alkaline Phosphatase 86 U/L (34-104) 07/09/17 15:31 Total Protein 7.7 gm/dL (6.0-8.3) 07/09/17 15:31 Albumin 4.3 gm/dL (3.7-5.3) 07/09/17 15:31 Globulin 3.4 gm/dL 07/09/17 15:31 Albumin/Globulin Ratio 1.3 (1.0-1.8) 07/09/17 15:31 Triglycerides 122 mg/dL (<150) 07/10/17 10:49 Cholesterol 235 mg/dL (<200) H 07/10/17 10:49 LDL Cholesterol Direct 167 mg/dL (75-193) 07/10/17 10:49 HDL Cholesterol 50 mg/dL (23-92) 07/10/17 10:49 TSH 15.39 uIU/ml (0.34-5.60) H 07/09/17 15:31 - Physical Exam Vitals and I&O: Vital Signs Temp 97.2 F 07/15/17 14:00 Pulse 79 07/15/17 14:00 Resp 20 07/15/17 14:00 BP 102/67 07/15/17 14:00 Pulse Ox 96 07/15/17 14:00 Intake & Output 02/07/18 02/08/18 02/08/18 18:59 06:59 18:59 Intake Total 300 120 Balance 300 120 Intake: Oral 300 120 Other: # Voids 3 3 # Bowel Movements 0 Active Medications: Current Medications Acetaminophen (Tylenol) 650 mg PO Q4HR PRN PRN Reason: Mild Pain / Temp above 100 Stop: 09/07/17 12:32 Al Hydrox/Mg Hydrox/Simethicone (Maalox) 30 ml PO Q4HR PRN PRN Reason: GI DISTRESS Stop: 09/07/17 12:32 Albuterol/Ipratropium (Duoneb Neb) 3 ml HHN Q6HR PRN PRN Reason: Wheezing Stop: 09/07/17 13:34 Amlodipine Besylate (Norvasc) 5 mg PO DAILY GERI Stop: 09/08/17 08:59 Last Admin: 07/15/17 08:44 Dose: 5 mg Bisacodyl (Dulcolax 10 Mg Supp) 10 mg RC DAILY PRN PRN Reason: Constipation Stop: 09/07/17 13:34 Carbidopa/Levodopa (Sinemet 25mg-100 Mg) 1 tab PO TID GERI Stop: 09/07/17 13:59 Last Admin: 07/15/17 14:44 Dose: Not Given Clopidogrel Bisulfate (Plavix) 75 mg PO DAILY GERI Stop: 09/08/17 08:59 Last Admin: 07/15/17 08:44 Dose: 75 mg Docusate Sodium (Colace) 100 mg PO BID GERI Stop: 09/07/17 16:59 Last Admin: 07/15/17 16:23 Dose: Not Given Donepezil HCl (Aricept) 10 mg PO HS [facility] Stop: 09/07/17 20:59 Last Admin: 07/14/17 21:28 Dose: 10 mg Lorazepam (Ativan) 0.5 mg PO Q4HR PRN; Protocol PRN Reason: Agitation Stop: 08/08/17 12:32 Last Admin: 07/13/17 21:19 Dose: 0.5 mg Magnesium Hydroxide (Milk Of Magnesia) 30 ml PO DAILY PRN PRN Reason: Constipation Stop: 09/07/17 13:34 Memantine (Namenda) 10 mg PO BID GERI Stop: 09/07/17 16:59 Last Admin: 07/15/17 16:23 Dose: Not Given Multivitamins/Vitamin C (Theragran) 1 tab PO DAILY GERI Stop: 09/08/17 08:59 Last Admin: 07/15/17 08:45 Dose: 1 tab Quetiapine Fumarate (Seroquel) 12.5 mg PO HS GERI PRN Reason: Protocol Stop: 09/08/17 20:59 Last Admin: 07/14/17 21:28 Dose: 12.5 mg Sodium Phosphate (Fleet Enema) 135 ml RC Q48H PRN PRN Reason: Constipation Stop: 09/07/17 13:34 Tramadol HCl (Ultram) 50 mg PO Q6H PRN PRN Reason: Pain (Moderate) Stop: 09/07/17 13:34 Valsartan (Diovan) 160 mg PO DAILY GERI Stop: 09/08/17 08:59 Last Admin: 07/15/17 08:45 Dose: 160 mg Zolpidem Tartrate (Ambien) 5 mg PO HS PRN PRN Reason: Insomnia Stop: 09/07/17 12:32 Last Admin: 07/11/17 21:46 Dose: 5 mg General: demented HEENT: NC/AT, PERRLA, EOMI, anicteric sclerae, throat clear Neck: Supple, No JVD, No thyromegaly, +2 carotid pulse wo bruit, No LAD Lungs: CTAB Cardiovascular: RRR, Normal S1, Normal S2, without murmur Abdomen: soft, non-tender, non-distended Extremities: clear Neurological: no change Internal Medicine Assmt/Plan - Assessment Assessment: 1.HTN. 2.DJD. 3.DEMENTIA - Plan Plan: CONTINUE ON CURRENT MEDICATION AND DIET. Nutritional Asmnt/Malnutr-PDOC - Dietary Evaluation Malnutrition Findings (Please click <Entered> for more info): Nutritional Asmnt/Malnutrition Start: 07/15/17 15: 08 Text: Status: Complete Freq: Document 07/15/17 15:08 SWATHI (Rec: 07/15/17 15:15 [email or web address]) Nutritional Asmnt/Malnutrition Patient General Information Nutritional Screening Moderate Risk Diagnosis agitation Pertinent Medical Hx/Surgical Hx parkinson disease, HTN, CAD, DJD, dementia Subjective Information Pt seen sleeping in rhiannon-chair in dining room. Spoke with nurse, pt needs assistance with feeding. Pt does not eat very much d/t sleepy most of the time. Per records, PO itnake 25%. Current Diet Order/ Nutrition Support [facility] soft ground Pertinent Medications colace, theragran, seroquel Pertinent Labs 2 Na 138, K 3.8, Cl 103, BUN 24, Cr 1.4, Glucose 101, Ca 9 .4, Alb 4.3 Nutritional Hx/Data Height 1.6 m Height (Calculated Centimeters) 160.0 Current Weight (lbs) 73.482 kg Weight (Calculated Kilograms) 73.5 Weight (Calculated Grams) 26787.0 Cobb Body Weight 115 % Cobb Body Weight 140 Body Mass Index (BMI) 28.7 Weight Status Overweight GI Symptoms GI Symptoms None Last BM 2/6 Difficult in: None Skin Integrity/Comment: intact Current %PO Poor (25-49%) Estimated Nutritional Goals Calories/Kcals/Kg 25-30 Kcals Calculated 1352-6213 Protein g/k-1.2 Protein Calculated 58-70 Fluid: ml 1450-1740ml (1ml/kcal) Nutritional Problem 1. Problem Problem inadequate food intake Etiology possible cognition, weakness Signs/Symptoms: PO intake 25%, meeting only 40 % of nutritional needs Malnutrition Alert Protein-Calorie Malnutrition N/A Is there a minimum of two criteria No selected? Query Text:Check all the applicable criteria. A minimum of two criteria are recommended for diagnosis of either severe or non-severe malnutrition. Intervention/Recommendation Comments 1. Continue with current diet as ordered. Assist with feeding for each meals. Recommend small frequent meals . 2. MD to consider appetite stimulat to help food intake. 3. Monitor PO intake, wt, labs and skin integrity 4. F/U as moderate risk in 3-5 days, 07/18-07/20 Expected Outcomes/Goals Expected Outcomes/Goals 1. PO intake to meet at least 75% of nutritional needs. 2. Wt stability, skin to remain intact, labs to approach WNL.
--- NOTE | 2017-07-16 03:47 | Progress Notes ---
DATE: 07/15/2017 SUBJECTIVE: The patient seen, chart reviewed, discussed with staff. The patient remains quite confused. Staff noting she seems to be doing well, more interactive, calmer, more cooperative, still disoriented, but no agitation, no escalation of behaviors. She has been taking her medications. ASSESSMENT: The patient remains confused, disoriented, but seemingly improved, especially since admission calmer. No agitation. No violent symptoms. PLAN: We will continue to monitor, the patient likely approaching her baseline. Her medications were reviewed including dosages and frequencies. JOB# [id number]
[2017-07-16] MEDS: Multivitamin Tab PO SCH (08:38)
--- NOTE | 2017-07-16 19:21 | Internal Medicine Prog Note ---
Internal Medicine Subjective - Subjective Service Date: 07/16/17 Patient seen and examined:: with staff (she is doing well) Patient is:: awake, non-verbal, in bed, confused Per staff patient has:: no adverse event Internal Medicine Objective - Results Result Diagrams: 07/09/17 15:31 07/09/17 15: Recent Labs: Laboratory Last Values WBC 6.6 Th/cmm (4.8-10.8) D 07/09/17 15: RBC 4.27 Mil/cmm (3.80-5.20) 07/09/17 15: Hgb 12.7 gm/dL (12-16) 07/09/17 15: Hct 39.5 % (41.0-60) L 07/09/17 15: MCV 92.4 fl (81-100) 07/09/17 15: MCH 29.8 pg (27.0-31.0) 07/09/17 15: MCHC Differential 32.2 pg (28.0-36.0) 07/09/17 15: RDW 13.1 % (11.5-20.0) 07/09/17 15: Plt Count 312 Th/cmm (150-400) 07/09/17 15: MPV 9.0 fl 07/09/17 15: Neutrophils % 49.5 % (40.0-80.0) 07/09/17 15: Lymphocytes % 39.1 % (20.0-50.0) 07/09/17 15: Monocytes % 7.9 % (2.0-10.0) 07/09/17 15: Eosinophils % 2.4 % (0.0-5.0) 07/09/17 15: Basophils % 1.1 % (0.0-2.0) 07/09/17 15: Sodium 138 mEq/L (136-145) 07/09/17 15: Potassium 3.8 mEq/L (3.5-5.1) 07/09/17 15: Chloride 103 mEq/L (98-107) 07/09/17 15: Carbon Dioxide 22.9 mEq/L (21.0-31.0) 07/09/17 15: Anion Gap 15.9 (7.0-16.0) 07/09/17 15:31 BUN 24 mg/dL (7-25) 07/09/17 15:31 Creatinine 1.4 mg/dL (0.6-1.2) H 07/09/17 15:31 Est GFR ( Amer) TNP 07/09/17 15:31 Est GFR (Non-Af Amer) TNP 07/09/17 15:31 BUN/Creatinine Ratio 17.1 07/09/17 15:31 Glucose 101 mg/dL (70-105) 07/09/17 15:31 Calcium 9.4 mg/dL (8.6-10.3) 07/09/17 15:31 Total Bilirubin 0.6 mg/dL (0.3-1.0) 07/09/17 15:31 AST 16 U/L (13-39) 07/09/17 15:31 ALT 9 U/L (7-52) 07/09/17 15:31 Alkaline Phosphatase 86 U/L (34-104) 07/09/17 15:31 Total Protein 7.7 gm/dL (6.0-8.3) 07/09/17 15:31 Albumin 4.3 gm/dL (3.7-5.3) 07/09/17 15:31 Globulin 3.4 gm/dL 07/09/17 15:31 Albumin/Globulin Ratio 1.3 (1.0-1.8) 07/09/17 15:31 Triglycerides 122 mg/dL (<150) 07/10/17 10:49 Cholesterol 235 mg/dL (<200) H 07/10/17 10:49 LDL Cholesterol Direct 167 mg/dL (75-193) 07/10/17 10:49 HDL Cholesterol 50 mg/dL (23-92) 07/10/17 10:49 TSH 15.39 uIU/ml (0.34-5.60) H 07/09/17 15:31 - Physical Exam Vitals and I&O: Vital Signs Temp 97.6 F 07/16/17 16:32 Pulse 71 07/16/17 16:32 Resp 19 07/16/17 16:32 BP 106/78 07/16/17 16:32 Pulse Ox 95 07/16/17 16:32 Intake & Output 07/16/17 07/16/17 07/17/17 06:59 18:59 06:59 Intake Total 720 Balance 720 Intake: Oral 720 Other: # Voids 3 # Bowel Movements 1 Active Medications: Current Medications Acetaminophen (Tylenol) 650 mg PO Q4HR PRN PRN Reason: Mild Pain / Temp above 100 Stop: 09/07/17 12:32 Al Hydrox/Mg Hydrox/Simethicone (Maalox) 30 ml PO Q4HR PRN PRN Reason: GI DISTRESS Stop: 09/07/17 12:32 Albuterol/Ipratropium (Duoneb Neb) 3 ml HHN Q6HR PRN PRN Reason: Wheezing Stop: 09/07/17 13:34 Amlodipine Besylate (Norvasc) 5 mg PO DAILY GERI Stop: 09/08/17 08:59 Last Admin: 07/16/17 08:38 Dose: Not Given Bisacodyl (Dulcolax 10 Mg Supp) 10 mg RC DAILY PRN PRN Reason: Constipation Stop: 09/07/17 13:34 Carbidopa/Levodopa (Sinemet 25mg-100 Mg) 1 tab PO TID GERI Stop: 09/07/17 13:59 Last Admin: 07/16/17 14:47 Dose: Not Given Clopidogrel Bisulfate (Plavix) 75 mg PO DAILY GERI Stop: 09/08/17 08:59 Last Admin: 07/16/17 08:38 Dose: 75 mg Docusate Sodium (Colace) 100 mg PO BID GERI Stop: 09/07/17 16:59 Last Admin: 07/16/17 16:19 Dose: Not Given Donepezil HCl (Aricept) 10 mg PO HS [facility] Stop: 09/07/17 20:59 Last Admin: 07/15/17 20:45 Dose: 10 mg Lorazepam (Ativan) 0.5 mg PO Q4HR PRN; Protocol PRN Reason: Agitation Stop: 08/08/17 12:32 Last Admin: 07/15/17 21:25 Dose: 0.5 mg Magnesium Hydroxide (Milk Of Magnesia) 30 ml PO DAILY PRN PRN Reason: Constipation Stop: 09/07/17 13:34 Memantine (Namenda) 10 mg PO BID GERI Stop: 09/07/17 16:59 Last Admin: 07/16/17 16:19 Dose: Not Given Multivitamins/Vitamin C (Theragran) 1 tab PO DAILY GERI Stop: 09/08/17 08:59 Last Admin: 07/16/17 08:38 Dose: 1 tab Quetiapine Fumarate (Seroquel) 12.5 mg PO HS GERI PRN Reason: Protocol Stop: 09/08/17 20:59 Last Admin: 07/15/17 20:45 Dose: 12.5 mg Sodium Phosphate (Fleet Enema) 135 ml RC Q48H PRN PRN Reason: Constipation Stop: 09/07/17 13:34 Tramadol HCl (Ultram) 50 mg PO Q6H PRN PRN Reason: Pain (Moderate) Stop: 09/07/17 13:34 Valsartan (Diovan) 160 mg PO DAILY GERI Stop: 09/08/17 08:59 Last Admin: 07/16/17 08:38 Dose: Not Given Zolpidem Tartrate (Ambien) 5 mg PO HS PRN PRN Reason: Insomnia Stop: 09/07/17 12:32 Last Admin: 07/11/17 21:46 Dose: 5 mg General: demented HEENT: NC/AT, PERRLA, EOMI, anicteric sclerae, throat clear Neck: Supple, No JVD, No thyromegaly, +2 carotid pulse wo bruit, No LAD Lungs: CTAB Cardiovascular: RRR, Normal S1, Normal S2, without murmur Abdomen: soft, non-tender, non-distended Extremities: clear Neurological: no change Internal Medicine Assmt/Plan - Assessment Assessment: 1.HTN. 2.DJD. 3.DEMENTIA - Plan Plan: CONTINUE ON CURRENT MEDICATION AND DIET. Nutritional Asmnt/Malnutr-PDOC - Dietary Evaluation Malnutrition Findings (Please click <Entered> for more info): Nutritional Asmnt/Malnutrition Start: 07/15/17 15: 08 Text: Status: Complete Freq: Document 07/15/17 15:08 [email or web address] (Rec: 07/15/17 15:15 [id number]) Nutritional Asmnt/Malnutrition Patient General Information Nutritional Screening Moderate Risk Diagnosis agitation Pertinent Medical Hx/Surgical Hx parkinson disease, HTN, CAD, DJD, dementia Subjective Information Pt seen sleeping in rhiannon-chair in dining room. Spoke with nurse, pt needs assistance with feeding. Pt does not eat very much d/t sleepy most of the time. Per records, PO itnake 25%. Current Diet Order/ Nutrition Support [facility] ground Pertinent Medications colace, theragran, seroquel Pertinent Labs 07/09 Na 138, K 3.8, Cl 103, BUN 24, Cr 1.4, Glucose 101, Ca 9 .4, Alb 4.3 Nutritional Hx/Data Height 1.6 m Height (Calculated Centimeters) 160.0 Current Weight (lbs) 73.482 kg Weight (Calculated Kilograms) 73.5 Weight (Calculated Grams) 82646.0 [place] Body Weight 115 % [place] Body Weight 140 Body Mass Index (BMI) 28.7 Weight Status Overweight GI Symptoms GI Symptoms None Last BM 2/6 Difficult in: None Skin Integrity/Comment: intact Current %PO Poor (25-49%) Estimated Nutritional Goals Calories/Kcals/Kg 25-30 Kcals Calculated 1359-0589 Protein g/k-1.2 Protein Calculated 58-70 Fluid: ml 1450-1740ml (1ml/kcal) Nutritional Problem 1. Problem Problem inadequate food intake Etiology possible cognition, weakness Signs/Symptoms: PO intake 25%, meeting only 40 % of nutritional needs Malnutrition Alert Protein-Calorie Malnutrition N/A Is there a minimum of two criteria No selected? Query Text:Check all the applicable criteria. A minimum of two criteria are recommended for diagnosis of either severe or non-severe malnutrition. Intervention/Recommendation Comments 1. Continue with current diet as ordered. Assist with feeding for each meals. Recommend small frequent meals . 2. MD to consider appetite stimulat to help food intake. 3. Monitor PO intake, wt, labs and skin integrity 4. F/U as moderate risk in 3-5 days, 07/18-07/20 Expected Outcomes/Goals Expected Outcomes/Goals 1. PO intake to meet at least 75% of nutritional needs. 2. Wt stability, skin to remain intact, labs to approach WNL.
--- NOTE | 2017-07-17 00:25 | Progress Notes ---
DATE: 07/16/2017 SUBJECTIVE: The patient seen, chart reviewed, discussed with staff. The patient remains confused, disoriented, but calmer. No agitation, more redirectable, still remains somewhat impulsive, unpredictable in regards to her behaviors, but she seems to be tolerating her medications more consistently, calm. Staff noting she has been compliant. ASSESSMENT: The patient remains symptomatic, still with ongoing concerns given her impulsive behaviors, unpredictability, but improvement noted. We will monitor and follow up. [facility]# [id number]
--- NOTE | 2017-08-05 18:53 | Discharge Summary ---
DATE OF DISCHARGE: 07/16/2017 JUSTIFICATION FOR HOSPITALIZATION: The patient came in for agitation and irritability. HISTORY OF PRESENT ILLNESS: An 86-year-old female coming in from a [facility] agitated, getting out of bed, not following directions. History of dementia and forgetfulness. PAST PSYCHIATRIC HISTORY: Dementia. SOCIAL HISTORY: Living in a fdc. Family is involved. No known alcohol or drug use. ALLERGIES: No known drug allergies. MENTAL STATUS EXAMINATION: Please see full psych eval for details. PROVISIONAL DIAGNOSIS: Psychosis, unspecified. Also, dementia with behaviors. PAST MEDICAL HISTORY: Please see full H and P. HOSPITAL COURSE: After initial assessment, the patient was admitted to the hospital. Medications were titrated. Medications were monitored. No overt side effects were noted. I also placed on Namenda and Aricept, low dose Seroquel. Over the course of the hospitalization, there was improvement. Her mood improved, affect improved, more engaged, no longer agitated. CONDITION UPON DISCHARGE: Improved, allowing ADLs, better eye contact, awake and alert. Remains confused, disoriented. No SI, no HI, no psychotic symptoms were obvious. No agitation, no violence. Better insight, better impulse control. PROVISIONAL DIAGNOSES: Psychosis, unspecified. Also, dementia with behaviors. MEDICAL: Please see full H and P. PROGNOSIS: The patient follows up with outpatient mental health services and remains treatment compliant. Prognosis will improve, otherwise guarded. I did speak with the family upon the day of discharge. [facility]# [id number]
== END 2017-07-16 19:55 | disposition home or self-care (01) | DRG 885 ==
LOC: GERO 12:00
PROVIDERS: ADMIT Psychiatry & Neurology Psychiatry; ATTEND Psychiatry & Neurology Psychiatry
DX: F29 Unspecified psychosis not due to a substance or known physiological condition (principal); F03.91 Unspecified dementia, unspecified severity, with behavioral disturbance; G20 Parkinson's disease; Z66 Do not resuscitate; I10 Essential (primary) hypertension; I25.10 Atherosclerotic heart disease of native coronary artery without angina pectoris; M19.90 Unspecified osteoarthritis, unspecified site
CPT/HCPCS: 36415-UA; 80053-TC; 80061-TC; 84443-TC; 85025-TC; 94760; Z7610